=== PATIENT | male | born 1955 | race Caucasian/White ===

== ENCOUNTER 2020-07-26 17:06 | Outpatient (CLI) | payer BC, SELFPAY ==
--- NOTE | ~2020-07-26 | XR_ITS ---
EXAMINATION: XR lumbar spine 2-3V DATE: 07/26/2020 17:36 INDICATION: Low back pain. TECHNIQUE: 3 views of lumbar spine were obtained. COMPARISON: Lumbar spine radiographs 08/13/2017 FINDINGS: Bone alignment is normal. Vertebral body heights and intervertebral disc heights are normal . There are endplate osteophytes at most levels. The facet joints are unremarkable. IMPRESSION: 1. Mild lumbar spondylosis. Reviewed, dictated and finalized at location A. IMPRESSION: 1. Mild lumbar spondylosis.
== END 2020-07-26 17:07 ==
PROVIDERS: PCP Family Medicine; Visit Provider Nurse Practitioner Family
DX: M47.26 Other spondylosis with radiculopathy, lumbar region (principal); R20.0 Anesthesia of skin; R20.2 Paresthesia of skin
CPT/HCPCS: 72100

== ENCOUNTER → 2020-08-03 07:50 | Outpatient (CLI) | payer BC, SELFPAY ==
--- NOTE | ~2020-08-03 | MR_ITS ---
EXAMINATION: MR lumbar spine wo con EXAM DATE: 08/03/2020 08:33 INDICATION: Low back pain, right leg pain and numbness. Occasional left leg pain. TECHNIQUE: Multi-sequential, multiplanar MR images of the lumbar spine were obtained without contrast . Sagittal T1, T2, T2 fat saturation images. Axial T2 weighted images. There is no prior study for comparison. FINDINGS: The vertebral bodies are aligned in the AP dimension. Vertebral body and disc heights are w ell-maintained. There are no suspicious marrow signal abnormalities. Mild diffuse lumbar disc desicca tion. The conus medullaris terminates at the T12-L1 level and has normal signal intensity and morphol ogy. Paraspinal soft tissue is unremarkable. Level by level evaluation: T12-L1: Disc does not extend beyond the endplate margin. Facet arthropathy: None. Neural foraminal stenosis: No stenosis. Central canal stenosis: No stenosis. L1-L2: There is a minimal diffuse disc bulge. Facet arthropathy: Minimal . Neural foraminal stenosis: No stenosis. Central canal stenosis: No stenosis. L2-L3: There is a minimal diffuse disc bulge. Facet arthropathy: Minimal. Neural foraminal stenosis: No stenosis. Central canal stenosis: No stenosis. L3-L4: There is a mild diffuse disc bulge. Facet arthropathy: Mild. Neural foraminal stenosis: No stenosis. Central canal stenosis: Mild. L4-L5: There is a mild to moderate diffuse disc bulge. Facet arthropathy: Moderate. Neural foraminal stenosis: Moderate right, mild to moderate left. Central canal stenosis: Mild to moderate. L5-S1: There is a mild diffuse disc bulge. Facet arthropathy: Mild to moderate. Neural foraminal stenosis: Mild to moderate bilateral. Central canal stenosis: Mild. IMPRESSION: 1. L4-5 moderate right neural foraminal stenosis. 2. Less spondylosis other levels. Reviewed, dictated and finalized at location A.
== END ==
PROVIDERS: PCP Family Medicine; Visit Provider Nurse Practitioner Family
DX: M54.5 Low back pain (principal)
CPT/HCPCS: 72148

== ENCOUNTER 2021-12-15 17:21 | Emergency (ER) | payer MEDICARE, SELFPAY ==
--- NOTE | ~2021-12-15 | CT_ITS ---
EXAMINATION: CT cervical spine wo con DATE: 12/15/2021 19:04 INDICATION: Head injury. TECHNIQUE: Computed tomography (CT) of the cervical spine was performed without intravenous contrast. Automated exposure control and iterative reconstruction technique were employed. The dose-length pro duct was 503.44 mGy-cm. COMPARISON: Cervical spine MRI 12/15/2021 FINDINGS: There is left posterior subcutaneous fat stranding, consistent with inflammation. There is 6 degrees levocurvature of cervical spine. There is mild chronic anterior wedging of T1 vertebral bod y. There are changes of anterior fusion procedure at C5-C6 with interbody device and anterior plate a nd screws. There is mildly decreased disc height at C7-T1. Osseous central spinal canal is developmen tally small. The following disc levels are specifically discussed: C2-C3: There is no uncovertebral joint osteoarthritis. There is moderate bilateral facet joint osteoa rthritis. There is mild left neural foraminal stenosis. There is mild central canal stenosis. C3-C4: There is no uncovertebral joint osteoarthritis. There is moderate bilateral facet joint osteoa rthritis. There is mild left neural foraminal stenosis. There is mild central canal stenosis. C4-C5: There is moderate bilateral uncovertebral joint osteoarthritis. There is mild bilateral facet joint osteoarthritis. There is mild bilateral neural foraminal stenosis. There is mild central canal stenosis. C5-C6: There is mild bilateral uncovertebral joint hypertrophy. There is mild bilateral facet joint o steoarthritis. There is mild bilateral neural foraminal stenosis. There is mild central canal stenosi s. C6-C7: There is no uncovertebral joint osteoarthritis. There is mild right facet joint osteoarthritis . There is no neural foraminal stenosis. There is no central canal stenosis. C7-T1: There is no uncovertebral joint osteoarthritis. There is severe bilateral facet joint osteoart hritis. There is mild bilateral neural foraminal stenosis. There is no central canal stenosis. IMPRESSION: 1. No fracture. 2. Mild cervical spondylosis. 3. Anterior fusion procedure at C5-C6. Reviewed, dictated and finalized at location A.
--- NOTE | ~2021-12-15 | CT_ITS ---
EXAMINATION: CT brain wo con DATE: 12/15/2021 19:04 INDICATION: Head injury. TECHNIQUE: Computed tomography (CT) of the head was performed without intravenous contrast. The mA wa s adjusted according to patient size. Iterative reconstruction technique was employed. The dose-lengt h product was 681.00 mGy-cm. COMPARISON: None FINDINGS: There are scattered areas of low attenuation in the cerebral white matter. There is no intr acranial hemorrhage, acute infarction, or abnormal intracranial mass lesion. The ventricles are paige l in size. The paranasal sinuses are clear. The orbits are normal. The mastoid air cells are normal. IMPRESSION: 1. Mild nonspecific cerebral white matter disease, which likely represents chronic small vessel ische pedro disease. Reviewed, dictated and finalized at location A. IMPRESSION: 1. Mild nonspecific cerebral white matter disease, which likely represents dyeing machine feeder tashi small vessel ischemic disease.
[2021-12-15 17:37] VITALS: BP 165/82; PULSE 78; RESP 18; TEMP 36.2; O2SAT 98
--- NOTE | 2021-12-15 18:40 | ED.FALL ---
HPI - Fall General Chief Complaint: Fall Stated Complaint: fall Time Seen by Provider: 12/15/21 18:39 History of Present Illness HPI Narrative: Patient is a 66-year-old male here for evaluation of a fall with head injury today. Patient states that he was walking backwards in his carotids, when his foot tripped on an extension cord, causing him to fall backwards, striking the posterior aspect of his head and upper neck against the handlebar of his lawnmower. He states that he did not lose consciousness, but has been complaining of a severe headache ever since. Headache is located right over the area where he was struck. He denies any nausea, vomiting, changes to his vision. He is not on any blood thinner medicines. Related Data Allergies Allergy/AdvReac Type Severity Reaction Status Date / Time No Known Allergies Allergy Unknown NONE Verified 12/15/21 19:00 Review of Systems Review of Systems: Gen: Denies fevers or chills Eyes: Denies eye pain or visual change ENT: Denies congestion Respiratory: Denies shortness of breath or cough CV: Denies chest pain or palpitations GI: Denies abdominal pain nausea, emesis or diarrhea denies burning, urgency, frequency or hematuria Musculoskeletal: Reports neck pain. Denies back pain Neuro: Reports headache. denies numbness, tingling, weakness or focal weakness Skin: Denies rash Except as documented, all other systems reviewed and negative [facility] Past Medical History Medical History Dyslipidemia External hemorrhoids History of tobacco use IFG (impaired fasting glucose) Internal hemorrhoids Perirectal abscess Wellness examination Surgical History Surgical History History of arthroscopic surgery of shoulder History of neck surgery Social History Social History Smoking packs per day: 2 Smoking cigarettes per day: 40.0 Years smoked: 25 Smoking pack-years: 50.00 Smoking status: Former smoker Tobacco type: cigarettes Second hand tobacco smoke exposure: No Smoking end date: 04/30/07 Alcohol intake: never Substance use: never Substance use type: does not use Gender identity (if verbalized by the patient): Male Sexual Orientation (if Verbalized by the Patient): Straight or Heterosexual Exam Narrative: APPEARANCE: Well appearing, no pain in distress, well-nourished. Head: small hematoma to base of skull that is tender to palpation EYES: PERRLA/EOMI, conjunctivae clear NOSE: No nasal drainage EARS: External ear normal in appearance THROAT: Oropharynx is clear. Mucous membranes are moist. NECK: tender to palpation along midline of upper cervical spine. C collar subsequently placed RESPIRATORY: Airway patent, respirations nonlabored. Clear to auscultation bilaterally, no rales, rhonchi, wheezing. CARDIOVASCULAR: Regular rate and rhythm without murmurs, rubs, or gallops. ABDOMINAL: Normoactive bowel sounds. Soft, nontender, nondistended. No rebound tenderness or guarding. MUSCULOSKELETAL: Extremities are warm and well-perfused. Moves all extremities well. No edema. NEURO: CN II-XII intact. Normal speech. SKIN: Skin is warm and dry. No rashes. PSYCHIATRIC: Normal affect/mood. Course Vital Signs Vital signs: Vital Signs Temperature 97.1 F L 12/15/21 17:37 Pulse Rate 78 12/15/21 17:37 Respiratory Rate 18 12/15/21 17:37 Blood Pressure 165/82 H 12/15/21 17:37 Pulse Oximetry 98 12/15/21 17:37 Oxygen Delivery Room Air 12/15/21 17:37 Temperature 97.1 F L 12/15/21 17:37 Pulse Rate 71 12/15/21 19:14 Respiratory Rate 18 12/15/21 19:14 Blood Pressure 144/81 H 12/15/21 19:14 Pulse Oximetry 99 12/15/21 19:14 Oxygen Delivery Room Air 12/15/21 17:37 MDM - Fall MDM Narrative Medical decision making narrative: 66-year-old male here for
[2021-12-15 19:14] VITALS: BP 144/81; PULSE 71; RESP 18; O2SAT 99
--- NOTE | 2021-12-15 19:19 | PC.NURSE ---
This RN assumed care of pt in ED 22. Pt sitting upright next to spouse in bedside chairs. Pt c-collar removed after negative cervical neck scan.
[2021-12-15] MEDS: ACETAMINOPHEN 325 MG TABLET 650 MG PO (19:22)
== END 2021-12-15 19:55 | disposition home or self-care (01) ==
PROVIDERS: Emergency Provider Family Medicine; PCP Family Medicine
DX: S09.90XA Unspecified injury of head, initial encounter (principal); E78.5 Hyperlipidemia, unspecified; Z87.891 Personal history of nicotine dependence; W18.09XA Striking against other object with subsequent fall, initial encounter
CPT/HCPCS: 70450; 72125; 99284; A9270

== ENCOUNTER → 2022-01-16 14:13 | Outpatient (CLI) | payer MEDICARE, SELFPAY ==
--- NOTE | ~2022-01-16 | XR_ITS ---
XR knee RT 3V DATE: 01/16/2022 14:45 INDICATION: Right knee pain TECHNIQUE: [place] and standing AP and lateral views COMPARISON: None FINDINGS: There is mild periarticular spurring at the patellofemoral joint consistent with osteoarthr itis. There is slight periarticular spurring at the medial and lateral compartments but medial and la teral compartment joint spaces are relatively preserved. No chondrocalcinosis or radiopaque and particular loose body. No fracture or dislocation or joint effusion. No periosteal reaction or bone destruction. IMPRESSION: Mild tricompartment osteoarthritis Reviewed, dictated and finalized at location B.
== END ==
PROVIDERS: PCP Nurse Practitioner Family; Visit Provider Nurse Practitioner Family
DX: M17.11 Unilateral primary osteoarthritis, right knee (principal)
CPT/HCPCS: 73562

== ENCOUNTER 2022-03-13 11:50 | Outpatient (CLI) | payer MEDICARE, SELFPAY ==
--- NOTE | ~2022-03-13 | US_ITS ---
US venous doppler LE RT DATE: 03/13/2022 13:01 INDICATION: Right leg pain TECHNIQUE: Real-time and color flow imaging and Doppler analysis of the veins COMPARISON: None FINDINGS: The greater saphenous vein is patent. There is spontaneous and phasic flow and normal augme ntation and color flow signal and normal compression of the deep veins of the right lower extremity. IMPRESSION: No evidence of deep venous thrombosis of right lower leg Reviewed, dictated and finalized at Location A. Reviewed, dictated and finalized at location A. TOGRAPHIC MACHINE OPERATOR
== END 2022-03-13 11:51 | disposition home or self-care (01) ==
PROVIDERS: PCP Family Medicine; Visit Provider Family Medicine
DX: M79.604 Pain in right leg (principal)
CPT/HCPCS: 93971

== ENCOUNTER 2022-03-29 10:45 | Outpatient (CLI) | payer MEDICARE, SELFPAY ==
--- NOTE | ~2022-03-29 | MR_ITS ---
EXAMINATION: MR knee RT wo con DATE: 03/29/2022 11:31 INDICATION: Right knee pain. TECHNIQUE: Magnetic resonance imaging (MRI) of the right knee was performed without intravenous contr ast. Sequences included axial PD-weighted FS FSE, coronal PD-weighted FSE and PD-weighted FS FSE, sag ittal PD-weighted FSE, and sagittal T2-weighted FS FSE. COMPARISON: Right knee radiographs 01/16/2022 FINDINGS: Medial compartment: Increased signal in medial meniscus does not definitely extend to an articular surface to indicate a tear. There is shallow partial-thickness cartilage loss of tibial condyle. There is partial-thickness cartilage loss of femoral condyle, deep at the central and posterior articular surface. Osteophytes are noted. Lateral compartment: Lateral meniscus is normal. There is cartilage surface irregularity of tibial condyle. There is parti al-thickness cartilage loss of femoral condyle, deep at the posterior articular surface. Osteophytes are noted. Patellofemoral compartment: There is partial-thickness cartilage loss of patella, deep at the medial facet. There is partial-thic kness cartilage loss of trochlea, deep at the medial and lateral trochlea. Osteophytes are noted. Ligaments and tendons: The anterior and posterior cruciate ligaments are normal. There are changes of prior sprains of fibul ar collateral ligament and medial collateral ligament characterized by increased signal intensity pro ximally. There is mild patellar tendinopathy. Fluid: There is a small knee joint effusion. There is a small ruptured Moran's cyst. There is mild superfici al infrapatellar bursitis. IMPRESSION: 1. Moderate tricompartmental chondrosis. 2. Small knee joint effusion. 3. Small ruptured Moran's cyst. Reviewed, dictated and finalized at location A. STRAPPER
== END 2022-03-29 10:46 | disposition home or self-care (01) ==
PROVIDERS: PCP Family Medicine; Visit Provider Nurse Practitioner Family
DX: M17.11 Unilateral primary osteoarthritis, right knee (principal); M25.461 Effusion, right knee; M71.21 Synovial cyst of popliteal space [Baker], right knee
CPT/HCPCS: 73721

== ENCOUNTER → 2022-07-18 10:45 | Outpatient (CLI) | payer MEDICARE, SELFPAY ==
--- NOTE | ~2022-07-18 | XR_ITS ---
EXAMINATION: [id number] INDICATION: Left knee pain TECHNIQUE: Two views of the left knee are obtained. COMPARISON: None available FINDINGS: Bone alignment is normal. There is no fracture. There is mild tricompartmental osteoarthrit is. There is no joint effusion. Calcified atherosclerosis is noted. IMPRESSION: 1. Mild osteoarthritis without acute osseous abnormality. Reviewed, dictated and finalized at location L.
== END ==
PROVIDERS: PCP Family Medicine; Visit Provider Nurse Practitioner Family
DX: M17.12 Unilateral primary osteoarthritis, left knee (principal)
CPT/HCPCS: 73560

== ENCOUNTER 2022-09-18 08:23 | Outpatient (CLI) | payer MEDICARE, SELFPAY ==
--- NOTE | 2022-09-18 08:32 | ECG_ITS ---
Measurements Intervals [place] Rate: 70 P: 36 CT: 181 QRS: -18 QRSD: 100 T: 53 QT: 378 QTc: 409 Interpretive Statements SINUS RHYTHM DELAYED PRECORDIAL R/S TRANSITION BORDERLINE ECG NO PREVIOUS ECG AVAILABLE FOR COMPARISON Electronically Signed On 09-18-2022 9:36:04 CDT by Edwardo Lopez D.O.
[2022-09-18 09:22] LABS: Anion Gap 3 mmol/L (8-16); Blood Urea Nitrogen 21 mg/dL (9-20); Calcium 9.3 mg/dL (8.4-10.2); Carbon Dioxide 34 mmol/L (22-30); Chloride 102 mmol/L (98-107); Estimated Glomerular Filt Rate > 60; Glucose 100 mg/dL (65-110); Potassium 4.1 mmol/L (3.4-5.0); Sodium 139 mmol/L (137-145)
== END 2022-09-18 08:24 | disposition home or self-care (01) ==
PROVIDERS: Anesthesiology; PCP Family Medicine; Visit Provider Orthopaedic Surgery
DX: I10 Essential (primary) hypertension (principal); Z01.818 Encounter for other preprocedural examination; R94.31 Abnormal electrocardiogram [ECG] [EKG]
CPT/HCPCS: 36415; 80048; 93005

== ENCOUNTER 2022-09-22 02:26 | Day surgery (SDC) | payer MEDICARE, SELFPAY ==
--- NOTE | 2022-09-15 13:55 | PC.NURSE ---
Report to the Outpatient Waiting Room, entrance under the green pavilion located off [facility], at time __1045 on date __09/22/22 . Planned Procedure Time: __1245 . Time changes happen often and if your time is changed the preop area will call you the afternoon before. - You and your visitor will be asked to self-screen and do not enter if you have any COVID symptoms. - A mask is optional within the hospital at this time. Patients may have clear liquids (water, carbonated beverages, clear teas, apple juice) until 3 hours prior to surgery with a maximum of 20 ounces. - No food from midnight until time of surgery - Infants may have breast milk until 4 hours before surgery, infant formula 6 hours prior to surgery. - Children will be allowed to drink immediately following surgery. If applicable, please bring a bottle or sippy cup to assist with drinking. Juice, water, soda, and popsicles are readily available. For infants on formula, please bring formula the day of surgery. Pacifiers are allowed. Take the following medications with a SIP of water the morning of surgery: ____NONE DO NOT STOP ANY OF YOUR OTHER PRESCRIPTION MEDICATIONS PRIOR TO SURGERY ?EXCEPT THE FOLLOWING Medications to discontinue per physician IBUPROFEN /ASPIRIN/ALEVE 7 DAYS PRE OP.LAST DOSE 09/14/22.MAY TAKE TYLENOL IF NEEDED FOR PAIN. MULTIVITAMIN 3 DAYS PRE OP. LAST DOSE 09/19/22 _ Please no make-up, nail chilean, hairspray, perfume, deodorant, or body powder the day of surgery. No jewelry (including any body piercings) or valuables the day of surgery, leave them at home. Please take a shower or bath the night before, or the morning of, surgery with an antibacterial soap. Wear comfortable, loose fitting clothing. Children are encouraged to wear pajamas. - Jewelry must be removed prior to entering the operating room. Rings and piercings that are not removed may be cut off. - The hospital will not accept responsibility for valuables. - Please leave all valuables, including medications, at home the day of surgery. If you are going home after surgery, a licensed over the road driver must drive you home. - NO public transportation without another adult if you receive anesthesia. - We recommend that an adult stay with you for 24 hours following discharge. - We also recommend that you do not drive, make important decision, drink alcoholic beverages, or take any drugs that were not prescribed by your health care provider for at least 24 hours after your discharge time. Follow any additional instructions given to you from your surgeon. If you or anyone in your household have experienced Covid symptoms in the past week, please notify your surgeon or the nurse liaison at the phone number below for possible testing. Telephone instructions given to __PATIENT and asked if any additional questions and then verbalized understanding. Patient advised to call surgeon office or pre surgery nurse liaison [phone] if any additional questions.
[2022-09-15 14:07] VITALS: BMI 42.0
--- NOTE | 2022-09-21 17:23 | WPDANESEPPF ---
Anes - Initial Pre Proc Eval Procedure: Operation Date: 09/22/22 12:45 Proposed Procedures p Right Knee Arthroscopic Partial Medial Meniscectomy - Serge Gusman MD Date/Time: 09/21/22 17:23 Surgeon: Serge Gusman MD Pre Op Diagnosis: Right knee medial meniscus tear Patient Data Age: 66 Gender: M Height: 1.83 m Weight: 140.65 kg Allergies Allergy/AdvReac Type Severity Reaction Status Date / Time No Known Allergies Allergy Unknown NONE Verified 09/22/22 11:56 Home Medications Medication Instructions Recorded Confirmed Type ibuprofen 800 mg tablet 800 mg PO TID PRN pain #10 tabs 12/15/21 09/15/22 Rx atorvastatin 40 mg tablet 40 mg PO DAILY #90 tabs 04/26/22 09/15/22 Rx hydrochlorothiazide 25 mg tablet 25 mg PO QAM #90 tabs 08/28/22 09/22/22 Rx albuterol sulfate 90 mcg/actuation 1 puff inhalation PRN PRN 09/15/22 09/15/22 History aerosol inhaler Shortness Of Breath multivitamin (Daily Multi-Vitamin 1 tablet PO DAILY 09/15/22 09/15/22 History tablet) ECG: Date of Service: 09/18/22 Procedure(s): CA 12 lead EKG Accession Number(s): [id number] cc: ~ ? Measurements Intervals? [place]? Rate: ? 70 ? P:? 36 MA: ? 181? QRS:? -18 QRSD: ? 100? T:? 53 QT: ? 378? QTc:? 409? Interpretive Statements SINUS RHYTHM DELAYED PRECORDIAL R/S TRANSITION BORDERLINE ECG NO PREVIOUS ECG AVAILABLE FOR COMPARISON Electronically Signed On 09-18-2022 9:36:04 CDT by Edwardo Lopez D.O. Patient hx anesthesia problems: none Family hx anesthesia problems: none Results Review: All pre-operative results and documents have been reviewed as part of the pre-operative evaluation. [facility] Past Medical History Medical History (Updated 09/21/22 @ 17:24 by Yehuda Zamora MD) COPD (chronic obstructive pulmonary disease) Dyslipidemia External hemorrhoids History of tobacco use Hyperlipidemia Hypertension IFG (impaired fasting glucose) Internal hemorrhoids Morbid obesity with BMI of 40.0-44.9, adult Osteoarthritis Perirectal abscess Surgical History Surgical History History of arthroscopic surgery of shoulder History of neck surgery History of tooth extraction Family History Family History Father Heart disease Mother Heart disease Social History Social History Social History: Smoking packs per day: 2 Smoking cigarettes per day: 40.0 Years smoked: 25 Smoking pack-years: 50.00 Smoking status: Former smoker Tobacco type: cigarettes Second hand tobacco smoke exposure: No Smoking end date: 11/29/99 Alcohol intake: never Substance use: never Substance use type: does not use Lack of Transportation: No Lack of Food: Never True Current Housing: I Have Housing Concerned About Future Housing: No Difficulty Paying Gas/Electric Bills: No Difficulty Paying for Meds: No Currently Unemployed: No Education: High School Diploma/GED Difficulty w/ Childcare or Family Care: No Living arrangements: with family Occupation/Education: retired Gender identity (if verbalized by the patient): Male Sexual Orientation (if Verbalized by the Patient): Straight or Heterosexual Spiritual care concerns: No Anes - Eval Final PreProcedure Day of Procedure 09/21/22 17:23 Patient weight: morbidly obese Heart: regular rate and rhythm Lungs: clear to auscultation Airway: Mallampati scale class II Neurological: alert and oriented Last oral intake: >/= 8 hours ASA classification: III Emergent: no Anesthetic plan: proceed Anesthes
[2022-09-22] MEDS: ACETAMINOPHEN 500 MG TABLET 1000 MG PO (11:30)
[2022-09-22] MEDS: KETOROLAC 15 MG/ML VIAL (*BKC) IV PUSH (11:30)
[2022-09-22] MEDS: LACTATED RINGERS 1,000 ML 30 ML IV CONT (11:30)
--- NOTE | 2022-09-22 13:02 | WPDHPUPDATE1 ---
History and Physical Update Update Date/Time: 09/22/22 13:02 History and Physical has been reviewed, including an updated exam of the patient. There are NO changes in the patient's condition. Risks, benefits, and alternatives have been discussed and questions answered. Patient agrees to proceed with procedure.
[2022-09-22] MEDS: ceFAZolin 3 GM/D5W 100 ML 100 ML IVPB (13:26)
[2022-09-22] MEDS: BUPIVACAINE/EPINEPHRINE 0.5% 50 ML VIAL 20 ML INFILTRATE (13:39)
[2022-09-22 14:21] VITALS: BP 131/79; PULSE 73; RESP 10; TEMP 36.7; O2SAT 98
--- NOTE | 2022-09-22 14:27 | W.PM.PROC2 ---
Procedure Note - Detailed Date of Procedure 09/22/22 Pre-op Diagnosis Right knee medial meniscus tear Post-op Diagnosis Same Procedure Performed Arthroscopic partial medial meniscectomy, right knee. Surgeon Serge Gusman MD Anesthesia General Findings Fzgj-jf-pleqilaf degenerative changes primarily on the femur. Subtle changes at the lateral femur and tibia. Some osteophytes in the notch. Extensive tearing of the medial meniscus with a displaced parrot-beak fragment near the medial aspect of the compartment. Subtotal meniscectomy performed. Gentle chondroplasty. Removal of multiple small cartilaginous joint debris. Description of Procedure The patient was identified and the surgical site confirmed and signed in the preoperative holding area. Antibiotics were started per protocol. He was brought to the operative room and transferred to the OR table. A general anesthetic was administered. Supine position with the operative lower extremity position in the leg barakat. The leg support was lowered and the contralateral limb was supported with a soft bolster. The knee was prepped and draped in the usual sterile fashion. A time-out was performed. The portal sites were marked and infiltrated with 0.5% Marcaine 20 mL. Standard inferolateral and inferomedial portals were established. Inflow was obtained with the saline pump. The camera was introduced. Diagnostic inspection of the joint was accomplished. The meniscus was debrided with the arthroscopic shaver and punches until stable. The radiofrequency probe was also used for further d?bridement. The arthroscopic instruments were removed. The tourniquet released and wounds closed with subcutaneous 4-0 Monocryl absorbable suture. Steri strips and a sterile dressing were applied. A light elastic wrap was placed. The patient was extubated and brought to the recovery room in stable condition. Estimated Blood Loss 5 Drains No Complications No immediate complications Condition Stable Disposition PACU [facility] Billing Surgery - Charge Forward: Surgery Billing
[2022-09-22 14:35] VITALS: BP 117/72; PULSE 67; RESP 12; O2SAT 98
[2022-09-22 14:50] VITALS: BP 123/82; PULSE 62; RESP 12; O2SAT 95
[2022-09-22 14:56] VITALS: BP 142/80; PULSE 65; RESP 14
[2022-09-22 15:25] VITALS: BP 138/80; PULSE 66; RESP 15
== END 2022-09-22 15:32 | disposition home or self-care (01) ==
PROVIDERS: PCP Family Medicine; Visit Provider Orthopaedic Surgery
PROC: (CPT 29870; principal; 2022-09-22 12:45)
DX: S83.241A Other tear of medial meniscus, current injury, right knee, initial encounter (principal); X58.XXXA Exposure to other specified factors, initial encounter; M17.11 Unilateral primary osteoarthritis, right knee; J44.9 Chronic obstructive pulmonary disease, unspecified; E78.5 Hyperlipidemia, unspecified; I10 Essential (primary) hypertension; E66.01 Morbid (severe) obesity due to excess calories; Z68.41 Body mass index [BMI] 40.0-44.9, adult; Z79.51 Long term (current) use of inhaled steroids; Z87.891 Personal history of nicotine dependence
CPT/HCPCS: 27332; A9270; J0690; J1885; J2250; J3010; J7120

== ENCOUNTER → 2022-11-15 09:47 | Outpatient (CLI) | payer MEDICARE, SELFPAY ==
--- NOTE | ~2022-11-15 | MR_ITS ---
MRI of the left knee Clinical history: Medial meniscal tear Technique: Coronal proton density and proton density-weighted images, sagittal proton-density and T2 fat-sat images, and axial proton-density fat-saturated images were acquired. Findings: Anterior and posterior cruciate ligaments are intact. Medial collateral ligament and the la teral collateral ligament complex are intact. Popliteus tendon is intact. There is complex tearing of the posterior horn and body of the medial meniscus. No definite lateral m eniscal tear is seen. There is extensive high-grade chondromalacia on both sides of the medial compartment. There is mild c hondromalacia of the posterior aspect of the lateral femoral condyle. There is diffuse moderate chond romalacia of the femoral trochlea. There is focal high-grade chondromalacia of the far medial patella r facet. Tricompartmental osteophytes, small, are present. Extensor mechanism is intact. There is minimal joint effusion and minimal Moran's cyst. Impression: Complex tearing of the posterior horn and body of the medial meniscus. Tricompartmental osteoarthritis, as detailed above, worst in the medial compartment. Minimal Moran's cyst. Reviewed, dictated and finalized at location . Impression: Complex tearing of the posterior horn and body of the medial meniscus. Tricompartmental osteoarthritis, as detailed above, worst in the medial compart ment. Minimal Moran's cyst.
== END ==
PROVIDERS: PCP Family Medicine; Visit Provider Orthopaedic Surgery
DX: S83.242A Other tear of medial meniscus, current injury, left knee, initial encounter (principal); X58.XXXA Exposure to other specified factors, initial encounter; M17.12 Unilateral primary osteoarthritis, left knee
CPT/HCPCS: 73721

== ENCOUNTER 2022-12-22 08:47 | Outpatient (CLI) | payer MEDICARE, SELFPAY ==
--- NOTE | ~2022-12-22 | US_ITS ---
EXAMINATION: US aorta [facility] DATE: 12/22/2022 10:57 CDT INDICATION: Screening for aneurysm. TECHNIQUE: Grayscale, color Doppler, and pulsed Doppler images of the aorta and common iliac arteries were obtained. COMPARISON: None. FINDINGS: The proximal aorta measures 2.6 cm sagittal dimension. The mid aorta measures 2.4 cm greatest sagitta l dimension. The distal aorta measures 2.4 cm greatest sagittal dimension. The right common internal iliac artery measures 1.3 cm. The left common iliac artery measures 1.3 cm. Incidental note is made o f hepatic steatosis. IMPRESSION: 1. Normal caliber aorta without aneurysm. Reviewed, dictated and finalized at location B.
== END 2022-12-22 08:48 | disposition home or self-care (01) ==
PROVIDERS: PCP Family Medicine; Visit Provider Family Medicine
DX: Z13.6 Encounter for screening for cardiovascular disorders (principal)
CPT/HCPCS: 76706

== ENCOUNTER 2023-03-15 02:17 | Day surgery (SDC) | payer MEDICARE, SELFPAY ==
[2023-03-12 10:10] VITALS: BMI 39.4
--- NOTE | 2023-03-13 14:06 | SUR.PREOP ---
Patient called regarding upcoming procedure. Message left on patient's voicemail regarding preop instructions, appointment times, and procedure prep.
--- NOTE | 2023-03-14 17:01 | PM.HPGS ---
History of Present Illness History of Present Illness Consent: Risks, benefits, and alternatives have been discussed and questions answered. Patient agrees to proceed with procedure. Chief complaint: Other fecal abnormalities Narrative: Natalio Fonseca is a 67 year old male Referred for colon cancer screening. Five years ago he had removal of 4 adenomatous polyps. Review of Systems Review of Systems: All systems reviewed & are unremarkable except as noted in HPI and below PMFSH Past Medical History Medical History COPD (chronic obstructive pulmonary disease) Dyslipidemia External hemorrhoids History of tobacco use Hyperlipidemia Hypertension IFG (impaired fasting glucose) Internal hemorrhoids Morbid obesity with BMI of 40.0-44.9, adult Osteoarthritis Perirectal abscess Surgical History Surgical History History of arthroscopic surgery of shoulder History of meniscectomy of right knee (~09/22/22) History of neck surgery History of tooth extraction Family History Family History Father Heart disease Mother Heart disease Social History Social History Social History: Smoking packs per day: 2 Smoking cigarettes per day: 40.0 Years smoked: 25 Smoking pack-years: 50.00 Smoking status: Former smoker Tobacco type: cigarettes Second hand tobacco smoke exposure: No Smoking end date: 11/29/99 Alcohol intake: never Substance use: never Substance use type: does not use Lack of Transportation: No Lack of Food: Never True Current Housing: I Have Housing Concerned About Future Housing: No Difficulty Paying Gas/Electric Bills: No Difficulty Paying for Meds: No Currently Unemployed: No Education: High School Diploma/GED Difficulty w/ Childcare or Family Care: No Living arrangements: with family Occupation/Education: retired Gender identity (if verbalized by the patient): Male Sexual Orientation (if Verbalized by the Patient): Straight or Heterosexual Spiritual care concerns: No Meds Home Medications and Allergies Home Medications Medication Instructions Recorded Confirmed Type albuterol sulfate 90 mcg/actuation 1 puff inhalation PRN PRN 09/15/22 03/15/23 History aerosol inhaler Shortness Of Breath multivitamin (Daily Multi-Vitamin 1 tablet PO DAILY 09/15/22 03/15/23 History tablet) atorvastatin 40 mg tablet 40 mg PO DAILY #90 tabs 10/30/22 03/15/23 Rx cyclobenzaprine 10 mg tablet 10 mg PO TID PRN muscle spasm #30 12/06/22 03/15/23 Rx tabs gabapentin 300 mg capsule 300 mg PO QHS #30 caps 12/07/22 03/15/23 Rx hydrochlorothiazide 25 mg tablet 25 mg PO QAM #90 tabs 01/02/23 03/15/23 Rx Allergies Allergy/AdvReac Type Severity Reaction Status Date / Time No Known Allergies Allergy Unknown NONE Verified 03/15/23 08:03 Exam Const: General: alert Orientation/consciousness: patient oriented x3 Resp: Auscultation: clear to auscultation bilaterally Cardio: Rhythm: regular rhythm GI: GI Palp: Yes Soft to palpation and No Tenderness to palpation present (GI) Neuro: General: patient oriented x3 Assessment and Plan Assessment and plan (1) Positive colorectal cancer screening using Cologuard test: Code(s): R19.5 - Other fecal abnormalities Status: Acute Assessment and Plan: Colonoscopy with possible biopsy or polypectomy or cautery or injection of substances.
[2023-03-15 07:54] VITALS: BP 145/90; PULSE 74; RESP 16; TEMP 35.8; O2SAT 97; BMI 39.4
[2023-03-15] MEDS: LACTATED RINGERS 1,000 ML 150 ML IV CONT (08:16)
--- NOTE | 2023-03-15 08:40 | WPDANESEPPF ---
Anes - Initial Pre Proc Eval Procedure: Operation Date: 03/15/23 09:00 Proposed Procedures p Colonoscopy - Forest Archer MD Date/Time: 03/15/23 08:40 Surgeon: Forest Archer MD Pre Op Diagnosis: Other fecal abnormalities Patient Data Age: 67 Gender: M Height: 1.83 m Weight: 132.1 kg Last Vital Signs Temp 96.4 F L 03/15/23 07:54 Pulse 74 03/15/23 07:54 Resp 16 03/15/23 07:54 BP 145/90 H 03/15/23 07:54 Pulse Ox 97 03/15/23 07:54 O2 Del Method Room Air 03/15/23 07:54 Allergies Allergy/AdvReac Type Severity Reaction Status Date / Time No Known Allergies Allergy Unknown NONE Verified 03/15/23 08:03 Home Medications Medication Instructions Recorded Confirmed Type albuterol sulfate 90 mcg/actuation 1 puff inhalation PRN PRN 09/15/22 03/15/23 History aerosol inhaler Shortness Of Breath multivitamin (Daily Multi-Vitamin 1 tablet PO DAILY 09/15/22 03/15/23 History tablet) atorvastatin 40 mg tablet 40 mg PO DAILY #90 tabs 10/30/22 03/15/23 Rx cyclobenzaprine 10 mg tablet 10 mg PO TID PRN muscle spasm #30 12/06/22 03/15/23 Rx tabs gabapentin 300 mg capsule 300 mg PO QHS #30 caps 12/07/22 03/15/23 Rx hydrochlorothiazide 25 mg tablet 25 mg PO QAM #90 tabs 01/02/23 03/15/23 Rx Patient hx anesthesia problems: none Family hx anesthesia problems: none Results Review: All pre-operative results and documents have been reviewed as part of the pre-operative evaluation. [facility] Past Medical History Medical History COPD (chronic obstructive pulmonary disease) Dyslipidemia External hemorrhoids History of tobacco use Hyperlipidemia Hypertension IFG (impaired fasting glucose) Internal hemorrhoids Morbid obesity with BMI of 40.0-44.9, adult Osteoarthritis Perirectal abscess Surgical History Surgical History History of arthroscopic surgery of shoulder History of meniscectomy of right knee (~09/22/22) History of neck surgery History of tooth extraction Family History Family History Father Heart disease Mother Heart disease Social History Social History Social History: Smoking packs per day: 2 Smoking cigarettes per day: 40.0 Years smoked: 25 Smoking pack-years: 50.00 Smoking status: Former smoker Tobacco type: cigarettes Second hand tobacco smoke exposure: No Smoking end date: 11/29/99 Alcohol intake: never Substance use: never Substance use type: does not use Lack of Transportation: No Lack of Food: Never True Current Housing: I Have Housing Concerned About Future Housing: No Difficulty Paying Gas/Electric Bills: No Difficulty Paying for Meds: No Currently Unemployed: No Education: High School Diploma/GED Difficulty w/ Childcare or Family Care: No Living arrangements: with family Occupation/Education: retired Gender identity (if verbalized by the patient): Male Sexual Orientation (if Verbalized by the Patient): Straight or Heterosexual Spiritual care concerns: No Anes - Eval Final PreProcedure Day of Procedure 03/15/23 08:40 Patient weight: morbidly obese Heart: regular rate and rhythm Lungs: clear to auscultation Airway: Mallampati scale class II Neurological: alert and oriented Last oral intake: >/= 8 hours ASA classification: III Emergent: no Anesthetic plan: proceed Anesthesia type and monitoring: general GIVS and standard monitoring Results Review: All pre-operative results and documents have been reviewed as part of the pre-operative evaluation. Informed Consent: The patient's anesthetic plan and its attendant risks and benefits were discussed with the patient/family/POA. Questions were solicited and answers provided to the satisfaction of the patient/family/POA.
[2023-03-15 09:08] VITALS: BP 130/81; PULSE 66; RESP 16; O2SAT 97
[2023-03-15 09:18] VITALS: BP 128/79; PULSE 65; RESP 18; O2SAT 96
[2023-03-15 09:28] VITALS: BP 144/86; PULSE 66; RESP 18; O2SAT 99
== END 2023-03-15 09:33 | disposition home or self-care (01) ==
PROVIDERS: PCP Family Medicine; Visit Provider Internal Medicine Gastroenterology
PROC: 0DJD8ZZ Inspection of Lower Intestinal Tract, Via Natural or Artificial Opening Endoscopic (ICD-10-PCS; CPT 45378; principal; 2023-03-15 09:00)
DX: Z12.11 Encounter for screening for malignant neoplasm of colon (principal); D12.4 Benign neoplasm of descending colon; D12.3 Benign neoplasm of transverse colon; K57.30 Diverticulosis of large intestine without perforation or abscess without bleeding; R19.5 Other fecal abnormalities; J44.9 Chronic obstructive pulmonary disease, unspecified; E78.5 Hyperlipidemia, unspecified; I10 Essential (primary) hypertension; E66.01 Morbid (severe) obesity due to excess calories; Z68.39 Body mass index [BMI] 39.0-39.9, adult; Z87.891 Personal history of nicotine dependence; Z79.51 Long term (current) use of inhaled steroids
CPT/HCPCS: 45380; 45385; 88305; J2704; J7120

== ENCOUNTER 2023-07-18 11:03 | Emergency (ER) | payer MEDICARE, SELFPAY ==
--- NOTE | ~2023-07-18 | CT_ITS ---
EXAMINATION: CT cervical spine wo con DATE: 07/18/2023 14:16 INDICATION: Neck pain TECHNIQUE: Computed tomography (CT) of the cervical spine was performed without intravenous contrast. Automated exposure control and iterative reconstruction technique were employed. The dose-length pro duct was 553.98 mGy-cm. COMPARISON: 12/15/2021 FINDINGS: Again seen is straightening of the normal cervical lordosis and a mild cervical levocurvature. No spo ndylolisthesis or facet subluxation. C5-C6 anterior spinal fusion with interbody fusion device and an terior plate and screw fixation. Unchanged mild anterior wedging at T1. Cervical vertebral body heigh ts are normal. No acute fracture. Mild disc height loss at C7-T1, T1-T2 and T2-T3. 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 No interval change in mild to moderate cervical uncovertebr al osteoarthritis. Also without interval change is severe bilateral facet osteoarthritis at C7-T1 wit h mild to moderate facet osteoarthritis and more cephalad thoracic spine. See prior CT report for lev el by level detail of the degenerative changes. Precise apices of lungs are clear. Atherosclerotic ca lcifications at the bilateral carotid bulbs. Cervical soft tissues are otherwise unremarkable. IMPRESSION: 1. No significant change in mild cervical spondylosis with C5-C6 instrumented anterior spinal fusion. No acute osseous abnormality. Reviewed, dictated and finalized at location A. IMPRESSION: 1. No significant change in mild cervical spondylosis with C5-C6 instrumented a nterior spinal fusion. No acute osseous abnormality.
[2023-07-18 11:33] VITALS: BP 157/79; PULSE 72; RESP 16; TEMP 36.6; O2SAT 97
--- NOTE | 2023-07-18 14:06 | ED.GENADULT ---
HPI - General Adult General Chief complaint: Neck Pain/Injury Stated complaint: neck pain x days, worsening Time Seen by Provider: 07/18/23 12:57 History of Present Illness HPI narrative: 67-year-old male presenting to the emergency department for evaluation of upper neck pain. Patient reports he does have a prior history of neck surgery. Patient did have some neck tenderness after riding lawnmower on Sunday and Sunday he was crawling around on the inside of his truck trying to fasten the truck bed on when he felt pain in his neck. Patient denies any associated numbness or weakness. Patient denies fall or traumatic injury but states he has had increased upper neck pain since that time. Related Data Home Medications Medication Instructions Recorded Confirmed albuterol sulfate 90 mcg/actuation 1 puff inhalation PRN PRN 09/15/22 06/13/23 aerosol inhaler Shortness Of Breath multivitamin (Daily Multi-Vitamin 1 tablet PO DAILY 09/15/22 06/13/23 tablet) Allergies Allergy/AdvReac Type Severity Reaction Status Date / Time No Known Allergies Allergy Unknown NONE Verified 06/13/23 13:06 Review of Systems Review of Systems: All systems reviewed & are unremarkable except as noted in HPI and below PMFSH Past Medical History Medical History COPD (chronic obstructive pulmonary disease) Dyslipidemia External hemorrhoids History of tobacco use Hyperlipidemia Hypertension IFG (impaired fasting glucose) Internal hemorrhoids Morbid obesity with BMI of 40.0-44.9, adult Osteoarthritis Perirectal abscess Surgical History Surgical History History of arthroscopic surgery of shoulder History of meniscectomy of right knee (~09/22/22) History of neck surgery History of tooth extraction Family History Family History Father Heart disease Mother Heart disease Social History Social History Social History: Smoking packs per day: 2 Smoking cigarettes per day: 40.0 Years smoked: 25 Smoking pack-years: 50.00 Smoking status: Former smoker Tobacco type: cigarettes Second hand tobacco smoke exposure: No Smoking end date: 11/29/99 Alcohol intake: never Substance use: never Substance use type: does not use Lack of Transportation: No Lack of Food: Never True Current Housing: I Have Housing Concerned About Future Housing: No Difficulty Paying Gas/Electric Bills: No Difficulty Paying for Meds: No Currently Unemployed: No Education: High School Diploma/GED Difficulty w/ Childcare or Family Care: No Living arrangements: with family Occupation/Education: retired Gender identity (if verbalized by the patient): Male Sexual Orientation (if Verbalized by the Patient): Straight or Heterosexual Spiritual care concerns: No Exam Narrative: APPEARANCE: Well appearing, no pain, no distress, well-nourished. HEAD: normocephalic, atraumatic. EYES: PERRLA/EOMI, conjunctivae clear. NOSE: Normal no drainage EARS:TMS clear with good light reflex. THROAT: Pharynx clear, no exudate. NECK: Supple. No adenopathy, no masses. RESPIRATORY: Airway patent, respirations nonlabored. Clear to auscultation bilaterally, no rales, rhonchi, wheezing. CARDIOVASCULAR: Regular rate and rhythm without murmurs rubs or gallops. ABDOMINAL: Soft, nontender, nondistended, normal bowel sounds MUSCULOSKELETAL: Moves all extremities. Strength/ROM intact, No edema, No calf tenderness. NEURO: Alert. Cranial nerves II through XII intact. SKIN: Warm, dry. Normal Color Course Course Emergency Course: 67-year-old male presenting ED for evaluation neck pain. Vital Signs Vital signs: Vital Signs Temperature 97.9 F 07/18/23 11:33 Pulse Rate 72 07/18/23 11:33 Respiratory
[2023-07-18] MEDS: CYCLOBENZAPRINE HCL 10 MG TABLET PO (14:49)
[2023-07-18] MEDS: HYDROcodone/acetaminophen (*CRX) 5-325 MG TABLET 1 TAB PO (14:50)
[2023-07-18 14:51] VITALS: BP 149/90; PULSE 68; RESP 18; TEMP 36.7; O2SAT 96
[2023-07-18 16:27] VITALS: BP 141/86; PULSE 66; RESP 20; O2SAT 95
== END 2023-07-18 16:29 | disposition home or self-care (01) ==
PROVIDERS: Emergency Provider Emergency Medicine; PCP Family Medicine
DX: M54.2 Cervicalgia (principal); J44.9 Chronic obstructive pulmonary disease, unspecified; E78.5 Hyperlipidemia, unspecified; E66.01 Morbid (severe) obesity due to excess calories; Z68.41 Body mass index [BMI] 40.0-44.9, adult; M19.90 Unspecified osteoarthritis, unspecified site; Z87.891 Personal history of nicotine dependence
CPT/HCPCS: 72125; 99284; A9270

== ENCOUNTER 2023-10-05 12:46 | Outpatient (CLI) | payer MEDICARE, SELFPAY ==
--- NOTE | 2023-10-06 09:22 | WPDPFTINT ---
PFT Procedure Performed PFT Procedure Performed Spirometry with Pre/Post Bronchodilator Plethysmography (Lung Vol) Diffusing Cap (DLCO) Flow Vol Loop PFT Interpretation This is a pulmonary function test with pre and post-bronchodilator spirometry, plethysmography and diffusing capacity. The test was performed and results interpreted in accordance with the 2019 and 2005 ATS/ERS Task Force guidelines respectively using the Global Lung Function Initiative-2012 reference equations. Patient demonstrated good effort and cooperation. Reproducibility criteria were met. The quality of the pre bronchodilator spirometry maneuver was Grade B and post bronchodilator spirometry maneuver was Grade A. Findings: Spirometry: the contour the inspiratory and expiratory flow tracing are normal. The pre bronchodilator FVC is 4.36 L, 96% predicted. The pre bronchodilator FEV1 is 3.41 L, 99% predicted. The pre bronchodilator FEV1: FVC ratio 78%. The post bronchodilator FVC is 4.61 L, representing a 6% increase. The post bronchodilator FEV1 is 3.66 L, representing a 7% increase. The post bronchodilator FEV1: FVC ratio 79%. Plethysmography: The total lung capacity is 7.74 L, 108% predicted. The functional residual capacity is 3.56 L, 94% predicted. The residual volume is 3.38 L, 140% predicted. The residual volume: Total lung capacity ratio is 44%. Diffusing capacity: The diffusing capacity unadjusted for hemoglobin and carboxyhemoglobin is 24.8, 90% predicted. The diffusing capacity adjusted for alveolar volume is 4.13, 103% predicted. Impression: The spirometry is normal without evidence of an obstructive abnormality. There is no significant improvement after inhaling a single dose of albuterol. The increase in residual volume to total lung volume ratio is consistent with hyperinflation. The diffusing capacity is normal. There are no prior studies for comparison
== END 2023-10-05 12:47 | disposition home or self-care (01) ==
LOC: ANHPFT 12:47
PROVIDERS: PCP Family Medicine; Visit Provider Physician Assistant
DX: R05.9 Cough, unspecified (principal); R06.02 Shortness of breath
CPT/HCPCS: 94060; 94726; 94729

== ENCOUNTER 2025-03-24 12:17 | Outpatient (CLI) | payer MEDICARE, SELFPAY ==
--- NOTE | ~2025-03-24 | XR_ITS ---
EXAMINATION: XR hip RT min 2V, 03/24/2025 12:58 UTILIZATION REVIEW NURSE HISTORY: M25.551 - Pain in right hip COMPARISON: No comparisons available. Findings: No acute fracture or malalignment. No significant degenerative changes. Soft tissues unremarkable. Impression: No acute fracture or malalignment. Reviewed, dictated and finalized at location P. IZATION REVIEW NURSE Impression: No acute fracture or malalignment.
== END 2025-03-24 12:18 | disposition home or self-care (01) ==
LOC: MICIMG 12:19
PROVIDERS: PCP Family Medicine; Visit Provider Physician Assistant
DX: M25.551 Pain in right hip (principal)
CPT/HCPCS: 73502